=== PATIENT | female | born 1935 | race Caucasian/White ===

== ENCOUNTER 2022-09-18 09:21 | Outpatient (CLI) | payer MEDICARE, SELFPAY ==
--- NOTE | 2022-09-18 11:00 | NEURO_ITS ---
Impression: # Complains of numbness of right hand. # Normal nerve conduction study including F-waves. # No Carpal Tunnel Syndrome or ulnar neuropathy. # Normal needle/EMG exam. # Clinical correlation recommended. Motor Nerve Conduction Upper Extremities Median Nerve Conduction Velocity (m/sec) Terminal Latency (msec) Response Voltage(mV) Elbow-Wrist Wrist Elbow Wrist Right 53 2.9 4 5 Left Ulnar Nerve Conduction Velocity (m/sec) Terminal Latency (msec) Response Voltage(mV) Above Elbow Below Elbow Wrist Above Elbow Below Elbow Wrist Right 54 2.7 6 8 Left F-Wave Latency Median (ms) Ulnar (ms) Right 27.9 27.5 Left Sensory Nerve Conduction Upper Extremities Median Nerve Stimulation Terminal Latency (msec) Wrist/Digit Response Voltage (uV) Wrist Right 3.1/3.1 44/44 Left Ulnar Nerve Stimulation Terminal Latency (msec) Wrist/Digit Response Voltage (uV) Wrist Right 2.7 57 Left Radial Nerve Terminal Latency (msec) Response Voltage(mV) Right 2.3 13 Left Left Right Muscles Examined Fibrillation Fasciculation Scarcity Voltage Duration Left Right Left Right Left Right Left Right Left Right Deltoid Biceps X Brachioradialis Triceps X Pronator Teres X Ext Indicis X Ext Digitorum X Abd Poll Brev X 1st Dorsal Interosseus Paraspinals MTDD
== END 2022-09-18 09:22 | disposition home or self-care (01) ==
PROVIDERS: Visit Provider Orthopaedic Surgery Hand Surgery
DX: M79.641 Pain in right hand (principal)
CPT/HCPCS: 95886; 95909

== ENCOUNTER → 2023-06-29 10:37 | Outpatient (CLI) | payer MEDICARE, SELFPAY ==
--- NOTE | ~2023-06-29 | MR_ITS ---
MRI of the lumbar spine Clinical History: Back pain Technique: Axial T2-weighted images, and sagittal T1-weighted, T2-weighted, and T2 fat-sat images wer e acquired. Findings: There is a moderate, chronic compression fracture deformity of L1, with loss of height and mild retropulsion, but no marrow edema. There is a 9 mm anterolisthesis of L4 over L5. No suspicious bone marrow signal abnormality seen. At L1-L2, disc bulge and severe facet arthropathy are present. No lara central canal stenosis. There is severe bilateral neural foraminal narrowing, in part related to retropulsion of the L1 vertebral body. At L2-L3, there is minimal disc bulge with severe facet arthropathy. No central canal stenosis. No de finite neural foraminal narrowing. At L3-L4, there is mild degenerative disc narrowing with mild disc bulge and severe facet arthropathy . There is probable focal mild to moderate central canal stenosis. There is moderate bilateral neural foraminal narrowing. At L4-L5, there is mild disc bulge/uncovering. There is severe facet arthropathy and possible fusion across the facet joint. No lara central canal stenosis. There is minimal bilateral neural foraminal narrowing. At L5-S1, there is no significant disc bulge or herniation. There is severe facet arthropathy. No wild tral canal stenosis. Probable mild to moderate right neural foraminal narrowing, and mild left neural foraminal narrowing. There is probable orthopedic hardware fusion along the facet joints at L4-L5 and L5-S1. Paravertebral soft tissues otherwise appear unremarkable. Impression: Moderate chronic compression fracture of L1. 9 mm anterolisthesis of L4 over L5. Moderate to advanced degenerative spondylosis overall. Possible prior orthopedic fusion or other inte rvention at the facet joints at L4-L5 and L5-S1. Correlate with surgical history. Reviewed, dictated and finalized at [facility]. Impression: Moderate chronic compression fracture of L1. 9 mm anterolisthesis of L4 over L5. Moderate to advanced degenerative spondylosis overall. Possible prior orthopedi c fusion or other intervention at the facet joints at L4-L5 and L5-S1. Correlat e with surgical history.
== END ==
PROVIDERS: PCP Internal Medicine; Visit Provider Nurse Practitioner Family
DX: S32.010A Wedge compression fracture of first lumbar vertebra, initial encounter for closed fracture (principal); M43.06 Spondylolysis, lumbar region
CPT/HCPCS: 72148